=== PATIENT | female | born 1955 | race Caucasian/White ===

== ENCOUNTER 2021-09-20 15:08 | Emergency (ER) | payer OTHER ==
[~2021-09-20] VITALS: Ht 162.6 cm; Wt 61.2 kg
--- NOTE | 2021-09-20 15:22 | NUR ---
lac on the upper lip and r knee abrasion s/p tripped and fall hit head,-loc. vitals are within normal limits. breathing is even and unlabored. awaiting md krishnamurthy.
[2021-09-20] MEDS ORDERED: TDAP [DIPH/PERTUSSIS/TET] 0.5 ML VIAL IM ONE ×2 (15:59→16:00)
[2021-09-20] MEDS ORDERED: LIDOCAINE 1%-EPI 1:100,000 20 ML VIAL TP ONE (16:00)
--- NOTE | 2021-09-20 16:03 | NUR ---
pt taken to ct
[2021-09-20] MEDS ORDERED: LIDOCAINE 1%-EPI 1:100,000 20 ML VIAL ONE (17:12)
[2021-09-20 17:46] VITALS: BP 123/82
--- NOTE | 2021-09-20 17:46 | NUR ---
Patient discharged to home in stable condition. Written and verbal after care instructions given. Patient verbalizes understanding of instruction.
== END 2021-09-20 17:47 | disposition home or self-care (01) ==
LOC: ER 15:16
DX: S01.511A Laceration without foreign body of lip, initial encounter (principal); W18.30XA Fall on same level, unspecified, initial encounter; Y93.89 Activity, other specified; Y92.009 Unspecified place in unspecified non-institutional (private) residence as the place of occurrence of the external cause; Y99.8 Other external cause status
CPT/HCPCS: 12011; 70450; 70486; 72125; 90471; 90715; 99284; J3490